=== PATIENT | male | born 1950 | race Caucasian/White ===

== ENCOUNTER 2024-01-24 10:44 | Emergency (ER) | payer OTHER ==
[2024-01-24] MEDS ORDERED: MORPHINE 4 MG/ML SYR ONE (12:09)
[2024-01-24] MEDS ORDERED: ONDANSETRON 4 MG/2 ML VIAL ONE (12:09)
[2024-01-24 13:02] LABS: Absolute Eosinophils 0.1 K/uL (0-0.5); Absolute Monocytes 0.4 K/uL (0.1-1.3); Absolute Neutrophil 3.6 K/uL (1.8-8.0); Basophils % 0.4 % (0-1.3); Hematocrit 38.7 % (39.6-49.0); Hemoglobin 12.8 g/dL (13.6-17.9); Lymphocytes % 18.8 % (15.3-44.8); MCH 29.4 pg (27.0-35.0); MCHC 33.2 g/dL (32.0-36.0); MCV 88.5 fL (80-100); MPV 9.9 fL (7.6-11.3); Monocytes % 8.5 % (3.3-12.3); Neutrophils % 70.3 % (41.7-73.7); Nucleated Red Blood Cells % 0.1 % (0-0); Platelets 168 thou/uL (152-406); RBC Red Blood Cell Count 4.37 M/uL (4.33-5.43); Red Cell Distribution Width 14.7 % (12.1-15.2)
[2024-01-24 13:25] LABS: AST/SGOT 12 U/L (15-37); Albumin 3.4 g/dL (3.4-5.0); Albumin/Globulin Ratio 1.1 (1.1-1.8); Alkaline Phosphatase 60 U/L (45-117); Anion Gap 7.3 mEq/L (5.0-15.0); BUN Blood Urea Nitrogen 11 mg/dL (7-18); Bicarbonate 29 mEq/L (21-32); Bilirubin Total 1.2 mg/dL (0.2-1.0); Globulin 3.2 g/dL (2.3-3.5); Glomerular Filtration Rate 89 ml/min (=/>90); Glucose Level 143 mg/dL (74-106); Potassium 3.3 mEq/L (3.5-5.1); Protein, Total 6.6 g/dL (6.4-8.2); Sodium Level 141 mEq/L (136-145); Uric Acid 3.4 mg/dL (3.5-7.2)
[2024-01-24 13:27] LABS: ALT/SGPT < 14 U/L (16-61)
--- NOTE | 2024-01-24 13:44 | ER ---
Nurse's Notes [facility] Name: Neville Lizarraga Jr Age: 73 yrs Sex: Male : 1950 Arrival Date: 01/24/2024 Time: 10:44 Bed 4 Private MD: Diagnosis: Wrist arthritis and effusion right side Presentation: 01/23 11:11 Chief complaint: Patient states: Pt states woke up a couple days ago with Lt wrist dd2 swollen and painful. Pt denies falling or injury. Coronavirus screen: At this time, the client does not indicate any symptoms associated with coronavirus-19. Ebola Screen: No symptoms or risks identified at this time. Initial Sepsis Screen: Does the patient meet any 2 criteria? No. Patient's initial sepsis screen is negative. Does the patient have a suspected source of infection? No. Patient's initial sepsis screen is negative. Risk Assessment: Do you want to hurt yourself or someone else? Patient reports no desire to harm self or others. Onset of symptoms is unknown. 11:11 Method Of Arrival: Ambulatory dd2 11:11 Acuity: JANIS 3 dd2 Triage Assessment: 11:14 General: Appears in no apparent distress. Behavior is calm, cooperative, appropriate dd2 for age. Pain: Complains of pain in Left wrist Pain currently is 10 out of 10 on a pain scale. Musculoskeletal: Swelling present in lt wrist. Injury Description: denies injury or fall. Historical: - PMHx: 11:14 Prostate cancer; Hypertensive disorder; Coronary atherosclerosis; dd2 - PSHx: 11:14 pacemaker; Appendectomy; Prostate; Rt hip replacement; neck surgery; Stented artery; dd2 - Immunization history:: Adult Immunizations unknown. - Infectious Disease History:: Denies. - Social history:: Smoking status: Patient denies any tobacco usage or history of. Screenin:[address] [facility] ED Fall Risk Assessment (Adult) History of falling in the last 3 months, rs5 including since admission No falls in past 3 months (0 pts) Confusion or Disorientation No (0 pts) Intoxicated or Sedated No (0 pts) Impaired Gait Yes (1 pt) Mobility Assist Device Used Yes (1 pt) Altered Elimination No (0 pt) Score/Fall Risk Level 0 - 2 = Low Risk Oriented to surroundings, Maintained a safe environment. Abuse screen: Denies threats or abuse. Nutritional screening: No deficits noted. Tuberculosis screening: No symptoms or risk factors identified. Assessment: 11:22 General: Appears in no apparent distress. uncomfortable, Behavior is calm, cooperative. rs5 Pain: Complains of pain in left wrist Pain currently is 8 out of 10 on a pain scale. Quality of pain is described as aching, Is continuous. Neuro: Level of Consciousness is awake, alert, obeys commands, Oriented to person, place, time, situation. Cardiovascular: Patient's skin is warm and dry. Respiratory: Airway is patent Respiratory effort is even, unlabored, Respiratory pattern is regular, symmetrical. GI: Abdomen is round non-distended, Abd is soft and non tender X 4 quads. : No signs and/or symptoms were reported regarding the genitourinary system. EENT: No signs and/or symptoms were reported regarding the EENT system. Derm: Skin is intact, Skin is pink, warm \T\ dry. Musculoskeletal: Range of motion: limited in left hand Swelling present in left hand. 12:22 Reassessment: Patient and/or family updated on plan of care and expected duration. Pain rs5 level reassessed. Patient is alert, oriented x 3, equal unlabored respirations, skin warm/dry/pink. Vital Signs: 11:11 BP 173 / 82; Pulse 63; Resp 16; Temp 97.9(TE); Pulse Ox 99% ; Weight 89.36 kg; Height 5 dd2 ft. 8 in. ; 12:20 BP 155 / 77; Pulse 60; Resp 17; Pulse Ox 98% on R/A; rs5 14:15 BP 159 / 74; Pulse 66; Resp 16; Pulse Ox 97% on R/A; rs5 11:11 Body Mass Index 29.95 (89.36 kg, 172.72 cm) dd2 ED Course: 10:47 Patient arrived in ED. mg5 11:09 Mala Bales MD is Attending Physician. sp3 11:14 Triage completed. dd2 11:14 Arm band placed on right wrist. Patient placed in waiting room, in view of staff dd2 members, Patient notified of wait time. 11:20 Patient has correct armband on for positive identification. Placed in gown. Bed in low rs5 position. Call light in reach. Side rails up X2. 11:20 No provider procedures requiring assistance completed. rs5 11:42 Kierra Nunn RN is Primary Nurse. ph 11:45 Initial lab(s) drawn, by me, sent to lab. First set of blood cultures drawn by me. bc6 12:50 Uric Acid Sent. bc6 12:50 Blood Culture Adult (2) Sent. bc6 12:50 CBC with Diff Sent. bc6 12:50 CMP Sent. bc6 12:50 Lactate w/ 2H reflex if indic. Sent. bc6 12:50 Inserted saline lock: 20 gauge in right antecubital area, using aseptic technique. bc6 Blood collected. Flushed with 10 mL NS. 13:06 Wrist Left (3 View) XRAY In Process Unspecified. EDMS 14:20 IV discontinued, intact, bleeding controlled, No redness/swelling at site. Pressure rs5 dressing applied. Administered Medications: 13:23 Drug: morphine IVP or IV 4 mg IVP once over 4 mins Route: IVP; Infused Over: 4 mins; ph Site: right antecubital; 14:00 Follow up: Response: No adverse reaction; Pain is decreased ph 13:23 Drug: Ondansetron IVP 4 mg IVP once; over 2 minutes Route: IVP; Site: right antecubital;ph 14:00 Follow up: Response: No adverse reaction ph 13:30 Drug: Potassium PO Effervescent Tablet 25 mEq PO once; dissolve in 4 ounces of water or rs5 juice Route: PO; 14:20 Follow up: Response: No adverse reaction rs5 13:30 Drug: MethylPrednisoLONE IVP 60 mg IVP once Route: IVP; Site: right antecubital; rs5 14:00 Follow up: Response: No adverse reaction rs5 Medication: 13:40 VIS not applicable for this client. rs5 Outcome: 13:43 Discharge ordered by . sp3 14:20 Discharged to home via wheelchair, with family, rs5 14:20 Condition: stable rs5 14:20 Discharge instructions given to patient, family, Instructed on discharge instructions, follow up and referral plans. medication usage, Demonstrated understanding of instructions, follow-up care, medications, Prescriptions given X 2, 14:24 Patient left the ED. rs5 Signatures: Dispatcher [employer] EDMS Kierra Nunn RN RN ph Mala Bales MD MD sp3 Nelson Ryan, RN RN rs5 Connie Cornell bc6 Pratima Aly mg5 AMY DUBOIS, RN RN dd2
--- NOTE | 2024-01-24 13:44 | EDPHYS ---
Physician Documentation [facility] Name: Neville Lizarraga Jr Age: 73 yrs Sex: Male : 1950 Arrival Date: 01/24/2024 Time: 10:44 Bed 4 Private MD: ED Physician Mala Bales HPI: 01/23 13:27 This 73 yrs old Male presents to ER via Ambulatory with complaints of Wrist pain \T\ sp3 swelling. 13:27 73-year-old male with history of prostate cancer, hypertension, CAD now presents with sp3 left wrist swelling and mild surface redness for approximately 2 to 3 days. Patient states he had a similar episode in the right foot where he was told it was not gout. He denies any other symptoms including proximal pain or swelling at the elbow or shoulder, chest pain, shortness of breath, back pain, injury, fever, rash, or any other signs or symptoms on ROS at this time.. Historical: - PMHx: 11:14 Prostate cancer; Hypertensive disorder; Coronary atherosclerosis; dd2 - PSHx: 11:14 pacemaker; Appendectomy; Prostate; Rt hip replacement; neck surgery; Stented artery; dd2 - Immunization history:: Adult Immunizations unknown. - Infectious Disease History:: Denies. - Social history:: Smoking status: Patient denies any tobacco usage or history of. ROS: 13:28 Constitutional: Negative for fever, chills, and weight loss, Eyes: Negative for injury, sp3 pain, redness, and discharge, ENT: Negative for injury, pain, and discharge, Neck: Negative for injury, pain, and swelling, Cardiovascular: Negative for chest pain, palpitations, and edema, Respiratory: Negative for shortness of breath, cough, wheezing, and pleuritic chest pain, Abdomen/GI: Negative for abdominal pain, nausea, vomiting, diarrhea, and constipation, Back: Negative for injury and pain, Neuro: Negative for headache, weakness, numbness, tingling, and seizure, Psych: Negative for depression, anxiety, suicide ideation, homicidal ideation, and hallucinations, Allergy/Immunology: Negative for hives, rash, and allergies, Endocrine: Negative for neck swelling, polydipsia, polyuria, polyphagia, and marked weight changes, 13:28 All other systems are negative, Exam: 13:28 Constitutional: This is a well developed, well nourished patient who is awake, alert, sp3 and in no acute distress. Head/Face: Normocephalic, atraumatic. Vital Signs: 11:11 BP 173 / 82; Pulse 63; Resp 16; Temp 97.9(TE); Pulse Ox 99% ; Weight 89.36 kg; Height 5 dd2 ft. 8 in. ; 12:20 BP 155 / 77; Pulse 60; Resp 17; Pulse Ox 98% on R/A; rs5 14:15 BP 159 / 74; Pulse 66; Resp 16; Pulse Ox 97% on R/A; rs5 11:11 Body Mass Index 29.95 (89.36 kg, 172.72 cm) dd2 MDM: 11:09 Patient medically screened. sp3 13:32 Data reviewed: vital signs, nurses notes, lab test result(s), radiologic studies. ED sp3 course: X-ray negative on my read. Radiology read pending. Laboratory values demonstrate no significant abnormality other than potassium of 3.3. WBC count is normal. Lactate is normal. Uric acid is normal as well. This is likely inflammatory arthritis versus sprain the patient cannot remember versus general arthritis. Believe infection is a contributing factor. We will place on pain medication, wrist splint and steroids. Solu-Medrol 60 mg IV x 1 prior to discharge.. 01/23 12:06 Order name: Blood Culture Adult (2) sp3 01/23 12:06 Order name: CBC with Diff; Complete Time: 13:28 sp3 01/23 12:06 Order name: CMP; Complete Time: 13:28 sp3 01/23 12:06 Order name: Lactate w/ 2H reflex if indic.; Complete Time: 13:28 sp3 01/23 12:06 Order name: Uric Acid; Complete Time: 13:28 sp3 01/23 11:40 Order name: Wrist Left (3 View) XRAY sp3 01/23 12:06 Order name: IV Saline Lock - Large Bore; Complete Time: 12:50 sp3 01/23 12:06 Order name: Labs collected and sent; Complete Time: 12:50 sp3 01/23 12:06 Order name: O2 Sat Monitoring; Complete Time: 12:07 sp3 01/23 12:06 Order name: Vital Signs; Complete Time: 12:07 sp3 01/23 13:33 Order name: Wrist Splint: Ney; Complete Time: 13:55 sp3 Administered Medications: 13:23 Drug: morphine IVP or IV 4 mg IVP once over 4 mins Route: IVP; Infused Over: 4 mins; ph Site: right antecubital; 14:00 Follow up: Response: No adverse reaction; Pain is decreased ph 13:23 Drug: Ondansetron IVP 4 mg IVP once; over 2 minutes Route: IVP; Site: right antecubital;ph 14:00 Follow up: Response: No adverse reaction ph 13:30 Drug: Potassium PO Effervescent Tablet 25 mEq PO once; dissolve in 4 ounces of water or rs5 juice Route: PO; 14:20 Follow up: Response: No adverse reaction rs5 13:30 Drug: MethylPrednisoLONE IVP 60 mg IVP once Route: IVP; Site: right antecubital; rs5 14:00 Follow up: Response: No adverse reaction rs5 Disposition Summary: 01/24/24 13:43 Discharge Ordered Notes: Location: Home sp3 Condition: Stable sp3 Diagnosis - Wrist arthritis and effusion right side sp3 Followup: sp3 - With: Private Physician - When: Upon discharge from the Emergency Department - Reason: Continuance of care Discharge Instructions: - Discharge Summary Sheet sp3 - Joint Pain sp3 Forms: - Medication Reconciliation Form sp3 - Antibiotic Education sp3 - Prescription Opioid Use sp3 - Patient Portal Instructions sp3 - Leadership Thank You Letter sp3 Prescriptions: - Prednisone 20 mg Oral Tablet - take 1 tablet ORAL route once daily for 5 days; 5 tablet; Refills: 0, Product sp3 Selection Permitted - Tramadol 50 mg Oral Tablet - take 1 tablet ORAL route every 8 hours as needed; 12 tablet; Refills: 0, sp3 Product Selection Permitted Signatures: Dispatcher [employer] Kierra Cueva RN RN ph Mala Bales MD MD sp3 Nelson Ryan RN RN rs5 AMY DUBOIS RN RN dd2
[2024-01-24] MEDS ORDERED: POTASSIUM 25 MEQ EFFERV TAB ONE (14:01)
[2024-01-24] MEDS ORDERED: METHYLPREDNISOLONE 125 MG INJ ONE (14:01)
[2024-01-24 14:28] VITALS: BP 173/82; TEMP 97.9; O2SAT 99
--- NOTE | 2024-01-24 14:30 | RAD REPORT ---
EXAM DESCRIPTION: RAD - Wrist Left 3 View - 01/24/2024 1:04 pm CLINICAL HISTORY: SMASH INJURY COMPARISON: No comparisons TECHNIQUE: Left wrist, 3 views. FINDINGS: No acute fracture. There is no dislocation or periosteal reaction noted. Moderate degenera tive changes at the thumb base. Small rounded lucency along the proximal scaphoid, likely of degenera tive nature. Foci of mineralization along the TFCC. No suspicious bony finding. No foreign body or ot her soft tissue abnormality. IMPRESSION: No acute osseous abnormality. Chronic findings as above.
== END 2024-01-24 14:24 | disposition home or self-care (01) ==
LOC: ER 10:44
DX: M19.032 Primary osteoarthritis, left wrist (principal); M25.432 Effusion, left wrist; I10 Essential (primary) hypertension; Z95.0 Presence of cardiac pacemaker
CPT/HCPCS: 87040 ×2; 85025; 36415; 84550; 83605; 80053; 73110; 96375; 96374; 99284; J2919; J2405